=== PATIENT | male | born 1955 | race Caucasian/White ===

== ENCOUNTER 2017-01-05 11:15 | Observation (INO) | payer OTHER ==
--- NOTE | ~2017-01-05 | HP ---
History And Physical [id number] [place]. [address] NAME: ALVERTO ALEX : 53 STATUS : REG ER PAT#: [id number] AGE: 61 ADM/REG DATE : 01/05/17 MR#: [id number] REPORT SERV DATE: 01/05/17 DICTATED BY: DAYA SPICER DATE: 01/05/17 REPORT STATUS : Draft TRANSCRIBED BY: MODL DATE: 01/05/17 DATE OF ADMISSION: 01/05/2017 CHIEF COMPLAINT: Dyspnea. HISTORY OF PRESENT ILLNESS: The patient is a 61-year-old male with known coronary artery disease with previous coronary artery bypass grafting and stenting. The patient reports that approximately a month ago, he developed upper respiratory tract infection type symptoms. Since that time, he has had progressive dyspnea despite the resolution of the other viral syndrome symptoms. He was seen by his primary care physician and had a D-dimer and troponin ordered in conjunction with his other screening laboratories. D-dimer and troponin were elevated and the patient was referred to the emergency department. On arrival in the emergency department, the patient is pain-free. He reports dyspnea and any mild exertion and generalized fatigue. Troponin in the emergency department noted to be 0.36. Beta natriuretic peptide 121 although the patient is obese. The patient has no evidence of acute myocardial infarction or active injury pattern by EKG in the emergency department. The patient does report however that his previous anginal symptoms and his previous anginal equivalent was dyspnea is never had true angina despite coronary artery bypass grafting. In October 2013, the patient had a similar presentation with dyspnea. Ultimately he underwent cardiac catheterization with placement of a drug-eluting stent to the [place] LAD. This is identical presentation to his 2013 admission. The patient denies palpitations, presyncope, or syncope. He reports chronic lower extremity edema. No bowel or bladder complaints. No fevers or chills. PAST MEDICAL HISTORY: 1. Coronary artery disease with coronary artery bypass grafting in 2004, by Dr. Raygoza with previous coronary interventions. a. A cardiac catheterization/PCI 10/07/2013, with placement of a drug-eluting stent to the LAD. The [place] circumflex was 100% occluded. The [place] right coronary artery could not be selectively engaged and was presumed to be occluded. Saphenous vein graft #1 was occluded at its origin. Saphenous vein graft #2 was to the first diagonal vessel and widely patent. Saphenous vein graft #3 was to the posterior descending artery at the distal left circumflex and was patent with a 25% stenosis in the proximal body of the graft. The left internal mammary artery was a [place] vessel that had not previously been used for bypass. The patient underwent stenting of the LAD with placement of a 3.5 x 18 mm Xience drug-eluting stent without complications. 2. Ischemic cardiomyopathy-ejection fraction 40% to 45% by previous echocardiogram 10/11/2015. 3. Diabetes mellitus. 4. Hypertension. 5. Obesity. 6. Sleep apnea. REVIEW OF SYSTEMS: Negative for all organ systems except per the history of present illness. History And Physical [address] [address] NAME: ALVERTO ALEX : 53 STATUS : REG ER PAT#: [id number] AGE: 61 ADM/REG DATE : 01/05/17 MR#: [id number] REPORT SERV DATE: 01/05/17 DICTATED BY: DAYA SPICER DATE: 01/05/17 REPORT STATUS : Draft TRANSCRIBED BY: AMANDA DATE: 01/05/17 ALLERGIES: PENICILLIN. SOCIAL HISTORY: Denies previous tobacco, alcohol, or illicit drug use. HOME MEDICATIONS: 1. Aspirin 81 mg daily. 2. Atorvastatin 40 mg daily. 3. Carvedilol 25 mg b.i.d. 4. Celebrex 200 mg daily. 5. Plavix 75 mg daily. 6. Farxiga 10 mg daily. 7. Trulicity 0.75 mg per 0.5 mL pen injection, 0.75 mL subcu each Sunday. 8. Fosinopril 40 mg daily. 9. Furosemide 40 mg p.r.n. edema. Levemir insulin 80 mg subcu at bedtime NovoLog 70/40 twenty units subcu before meals. 10.Probiotic supplement 1 tablet daily. 11.Multivitamin with minerals 1 tablet daily. 12.Omeprazole 40 mg at bedtime. 13.Potassium chloride 10 mEq daily p.r.n. with p.r.n. Lasix use. FAMILY HISTORY: Noncontributory. PHYSICAL EXAMINATION: VITALS: Blood pressure 154/92, pulse 78, and respirations 16 and unlabored. GENERAL: Elderly obese male, in no acute distress. HEENT: Normal. NECK: Supple, no JVD or bruit, normal carotid upstroke bilaterally, no thyromegaly. LUNGS: Clear to auscultation and percussion. No wheezes, rales or rhonchi. No use of accessory muscles. CARDIOLOGY: Regular rhythm, normal S1, S2, no thrill, no murmur, rubs or gallops, normal PMI. ABDOMEN: Bowel sounds positive, soft, nontender, and nondistended. No masses or aortic bruits. No hepatosplenomegaly or hepatojugular reflux. EXTREMITIES: Chronic venous stasis changes are noted. Normal pulses. A 1+ pitting edema at the ankles bilaterally. No clubbing or cyanosis. SKIN: Warm and dry, no significant rash. NEUROLOGIC: Alert and oriented x 3. Appropriate mood. LABORATORIES: WBC 8.5, hemoglobin 14.6, hematocrit 43, and platelets 179,000. Sodium 141, potassium 4.3, chloride 107, CO2 of 28, BUN 19, creatinine 0.9, and glucose 211. Troponin 0.36; previous troponin in the outpatient clinic 0.32. INR 1.2. Magnesium 1.8. EKG: Sinus rhythm with nonspecific ST and T-wave changes. CT of the chest, small right pleural effusion. Probable left adrenal adenoma. No evidence of pulmonary embolism. Chest x-ray: Reported venous congestion. History And Physical [address] [address] NAME: ALVERTO ALEX : 53 STATUS : REG ER PAT#: [id number] AGE: 61 ADM/REG DATE : 01/05/17 MR#: [id number] REPORT SERV DATE: 01/05/17 DICTATED BY: DAYA SPICER DATE: 01/05/17 REPORT STATUS : Draft TRANSCRIBED BY: MODLuis DATE: 01/05/17 IMPRESSION: 1. Patient presenting with progressive dyspnea on exertion as a probable anginal equivalent. Previous similar presentation in 2013 with subsequent drug-eluting stent placement to the [place] LAD. Given the abnormal enzyme, we have recommended cardiac catheterization with intervention as indicated. The risks, benefits, and alternatives of the procedure have been discussed with the patient. The patient's questions have been answered. The potential complications including but not limited to, , myocardial infarction, stroke, life-threatening allergic reaction, renal failure, life- threatening arrhythmia, vascular or cardiac injury requiring emergent surgery have been discussed with the patient. The patient's questions been answered. He voices understanding of the potential risks and desires to proceed. 2. Diabetes mellitus-we will place the patient on sliding scale insulin regimen. 3. Incidental finding of a possible adrenal adenoma by CT scan. We will defer workup to a later date as an outpatient. BENI/AMANDA Tate Spicer M.D. / [id number] CC: ANDRE PHAM
[~2017-01-05 11:15] MED LIST: ADVAIR100 INH; ALBUTEROL NEB INH; ASAB PO; CELEBREX2 PO; COREG25 PO; FARXIGA10 PO; JANUVIA100 MG PO; KDUR20 PO; L40 PO; LEVEMIR SC; LIPITOR20 PO; LIPITOR40 PO; MONOPRIL40 MG PO; MULTIVITAMI1 PO; NORV5 PO; NOVOLOG SC; PLAVIX PO; PRILOSEC40 MG PO; PROAIR HFA INH; PROBIOTIC; TRULICITY0.75 MG/0. SQ
[2017-01-05 11:16] LABS: BASOPHILS 0.4 %; BASOPHILS ABSOLUTE 0.03 10/3/uL (0.0-0.16); EOSINOPHILS 3.4 %; EOSINOPHILS ABSOLUTE 0.29 10/3/uL (0.0-0.53); ER CBC TAT 0 Hrs 07 Mins; HEMOGLOBIN 14.6 g/dL (13.6-17.8); IMMATURE GRANULOCYTES 0.4 %; IMMATURE GRANULOCYTES ABSOLUTE 0.03 10/3/uL (0.0-0.11); LYMPHOCYTES 11.2 %; LYMPHOCYTES ABSOLUTE 0.95 10/3/uL (0.67-4.30); MANUAL DIFF NO %; MEAN CORPUSCULAR HEMOGLOB 28.8 pg (26.0-34.0); MEAN CORPUSCULAR VOLUME 84.8 fL (80-100); MONOCYTES 8.6 %; MONOCYTES ABSOLUTE 0.73 10/3/uL (0.21-1.20); NEUTROPHILS ABSOLUTE 6.42 10/3/uL (2.02-8.40); PLATELET COUNT 179 10/3/uL (150-400); RBC DISTRIBUTION WIDTH 15.3 % (12.0-16.0); RED CELL COUNT 5.07 10/6/uL (4.7-6.1); WHITE BLOOD CELLS 8.5 10/3/uL (4.5-10.5)
[2017-01-05 11:23] LABS: INTERNATIONAL NORMAL RATI 1.2 UNITS (-); PROTIME (NOT ORD) 14.8 SEC (12.0-14.5)
[2017-01-05 11:31] LABS: BUN (BLOOD UREA NITROGEN) 19 MG/DL (6-23); CALCIUM, SERUM 8.6 MG/DL (8.5-10.4); CHLORIDE, SERUM 107 MMOL/L (96-112); CO2 (CARBON DIOXIDE) 28 MMOL/L (24-34); GFR AFRICAN AMERICAN 106 ML/MIN (>=60); GFR NON AFRICAN AMERICAN 91 ML/MIN (>=60); GLUCOSE, SERUM 211 MG/DL (60-99); POTASSIUM, SERUM 4.3 MMOL/L (3.5-5.3); SODIUM, SERUM 141 MMOL/L (135-148)
[2017-01-05 11:32] LABS: CHEST PAIN PROFILE TAT 0 Hrs 23 Mins; TROPONIN I 0.36 NG/ML (<0.05)
[2017-01-05] MEDS ORDERED: PLAVIX PO (11:56)
[2017-01-05] MEDS ORDERED: FARXIGA10 PO (11:57)
[2017-01-05] MEDS ORDERED: COREG25 PO (11:57)
[2017-01-05] MEDS ORDERED: MONOPRIL40 MG PO (11:57)
[2017-01-05] MEDS ORDERED: L40 PO (11:57)
[2017-01-05] MEDS ORDERED: NOVOLOGMIX SC (11:58)
[2017-01-05] MEDS ORDERED: KLOR-CON 1010 MEQ PO (11:58)
[2017-01-05] MEDS ORDERED: LEVEMIR SC (11:59)
[2017-01-05] MEDS ORDERED: TRULICITY0.75 MG/0. SQ (11:59)
[2017-01-05] MEDS ORDERED: HALF81 PO (11:59)
[2017-01-05] MEDS ORDERED: ALIGN4 MG PO (12:00)
[2017-01-05] MEDS ORDERED: LIPITOR40 PO (12:00)
[2017-01-05] MEDS ORDERED: PRILOSEC40 MG PO (12:00)
[2017-01-05] MEDS ORDERED: CELEBREX2 PO (12:00)
[2017-01-05] MEDS ORDERED: THERGRANM PO (12:00)
[2017-01-06 04:37] LABS: BASOPHILS 0.1 %; BASOPHILS ABSOLUTE 0.01 10/3/uL (0.0-0.16); EOSINOPHILS 0.8 %; EOSINOPHILS ABSOLUTE 0.08 10/3/uL (0.0-0.53); HEMATOCRIT 44.5 % (40.0-51.0); HEMOGLOBIN 14.4 g/dL (13.6-17.8); IMMATURE GRANULOCYTES 0.3 %; IMMATURE GRANULOCYTES ABSOLUTE 0.03 10/3/uL (0.0-0.11); LYMPHOCYTES 6.9 %; MEAN CORPUS HGB CONC 32.4 g/dL (32.0-36.0); MEAN CORPUSCULAR HEMOGLOB 27.5 pg (26.0-34.0); MEAN CORPUSCULAR VOLUME 85.1 fL (80-100); MONOCYTES 7.1 %; MONOCYTES ABSOLUTE 0.72 10/3/uL (0.21-1.20); NEUTROPHILS 84.8 %; NEUTROPHILS ABSOLUTE 8.66 10/3/uL (2.02-8.40); PLATELET COUNT 203 10/3/uL (150-400); RBC DISTRIBUTION WIDTH 15.4 % (12.0-16.0); RED CELL COUNT 5.23 10/6/uL (4.7-6.1); WHITE BLOOD CELLS 10.2 10/3/uL (4.5-10.5)
[2017-01-06 04:39] LABS: MANUAL DIFF NO %
[2017-01-06 04:45] LABS: BUN (BLOOD UREA NITROGEN) 20 MG/DL (6-23); CALCIUM, SERUM 8.7 MG/DL (8.5-10.4); CHLORIDE, SERUM 108 MMOL/L (96-112); CHOLESTEROL 132 MG/DL (< 200); CK-MB 10.5 NG/ML; CO2 (CARBON DIOXIDE) 27 MMOL/L (24-34); CPK 219 U/L (0-200); CREATININE 0.87 MG/DL (0.70-1.30); GFR AFRICAN AMERICAN 107 ML/MIN (>=60); GFR NON AFRICAN AMERICAN 92 ML/MIN (>=60); GLUCOSE, SERUM 210 MG/DL (60-99); POTASSIUM, SERUM 4.3 MMOL/L (3.5-5.3); SODIUM, SERUM 142 MMOL/L (135-148); TRIGLYCERIDE 71 MG/DL (< 150)
[2017-01-06 04:47] LABS: CHOL/HDL RATIO(NOT ORDER) 3.3 (0-5); CKMB INDEX (NOT ORD) 4.8; HDL CHOLESTEROL 40 MG/DL (> 39); LDL CHOLESTEROL 78 MG/DL (< 130); NON-HDL CHOLESTEROL 92 MG/DL (< 160); TROPONIN I 0.85 NG/ML (<0.05)
== END 2017-01-06 10:15 | disposition home or self-care (01) ==
LOC: ER 11:15 → CDU1 19:17 → CDU2 19:25
PROVIDERS: Emergency Medicine; Internal Medicine Interventional Cardiology
PROC: 4A023N7 Measurement of Cardiac Sampling and Pressure, Left Heart, Percutaneous Approach (ICD-10-PCS; principal; 2017-01-05)
PROC: B2121ZZ Fluoroscopy of Single Coronary Artery Bypass Graft using Low Osmolar Contrast (ICD-10-PCS; 2017-01-05)
PROC: 027034Z Dilation of Coronary Artery, One Artery with Drug-eluting Intraluminal Device, Percutaneous Approach (ICD-10-PCS; 2017-01-05)
DX: I25.10 Atherosclerotic heart disease of native coronary artery without angina pectoris (principal); I25.82 Chronic total occlusion of coronary artery; I21.4 Non-ST elevation (NSTEMI) myocardial infarction; I35.0 Nonrheumatic aortic (valve) stenosis; I10 Essential (primary) hypertension; I25.5 Ischemic cardiomyopathy; E11.9 Type 2 diabetes mellitus without complications; E66.9 Obesity, unspecified; G47.30 Sleep apnea, unspecified; Z95.1 Presence of aortocoronary bypass graft; Z88.0 Allergy status to penicillin; Z79.82 Long term (current) use of aspirin; Z79.02 Long term (current) use of antithrombotics/antiplatelets; Z79.1 Long term (current) use of non-steroidal anti-inflammatories (NSAID); Z79.4 Long term (current) use of insulin; Z79.899 Other long term (current) drug therapy
CPT/HCPCS: 71010; 71275; 80048; 80061; 82550; 82553; 82962; 83735; 83880; 84484; 85025; 85610; 85730; 93005; 93459; 96374; 96375; 96376; 99152; 99153; 99285; A9270-GY; C1713; C1725; C1760; C1769; C1874; C1887; C8929; C9600; G0378; J0360; J0583; J1200; J2250; J2405; J3010; Q9957; Q9967